=== PATIENT | female | born 1955 | race Caucasian/White ===

== ENCOUNTER 2017-03-13 19:22 | Inpatient (IN) | payer BC ==
[~2017-03-13] VITALS: Ht 162.6 cm; Wt 75.5 kg
--- NOTE | 2017-03-13 20:15 | NUR ---
PT IN ED FOR CP X1.5 WEEKS INTERMITTENLY, REPORTS TODAY HAS BECOME WORSE. PT STS ONSET AT 1700 TODAY, WHILE SHE WAS SITTING "DOING NOTHING." PAIN ORIGINATED IN UPPER L OF CHEST, RADIATED TO THROAT AND HEAD. STS TINGLING TO L ARM AT THE TIME. PT'S DAUGHTER STS PT HAS HX OF STROKE IN JUL 2016. PT'S DAUGHTER ALSO REPORTS PT FELT HER JAW "LOCK UP" AT TIME ON ONSET. HAND [employer] STRON BILAT, PT ABLE TO FOLLWO COMMANDS. PT ALSO HAS HX OF AFIB PER DAUGHTER. PT AT THIS TIME STS CP IS MUCH DECREASED, NO TINGLING OF L ARM, OR NAUSEA AT THIS TIME. PT AAO4, RESP E/U, NO COMPLAINTS. DAUGHTER AT BEDSIDE. PT CONNECTED TO FULL
--- NOTE | 2017-03-13 20:21 | NUR ---
MSE BY DR QUINTANILLA
--- NOTE | 2017-03-13 21:00 | NUR ---
PT AMBULATED TO RESTROOM WITH STEADY GAIT
[2017-03-13 21:01] LABS: CALCIUM 8.9 mg/dL (8.5-10.1); CARBON DIOXIDE 28.7 mmol/L (21-32); CHLORIDE SERUM 105 mmol/L (98-107); CREATININE SERUM 0.7 mg/dL (0.6-1.0); GFR1 > 60 mL/min; GLUCOSE SERUM 97 mg/dL (74-106); POTASSIUM SERUM 3.7 mmol/L (3.5-5.1); SODIUM SERUM 143 mmol/L (136-145)
[2017-03-13 21:06] LABS: ALBUMIN 3.7 g/dL (3.4-5.0); ALKALINE PHOSPHATASE 98 U/L (46-116); ALT/SGPT 32 U/L (14-59); AST/SGOT 20 U/L (15-37); BILIRUBIN TOTAL 0.35 mg/dL (0.20-1.00); LIPASE 149 IU/L (73-393); TOTAL PROTEIN, SERUM 7.3 g/dL (6.4-8.2)
[2017-03-13 21:08] LABS: BASOPHIL % 0.7 % (0-2); PLATELET COUNT 216 x10^3mcL (130-400); RED CELL DISTRIBUTION WIDTH 13.4 % (11.5-14.5)
[2017-03-13] MEDS ORDERED: AMLODIPINE BESYL5 M2 PO (21:18)
[2017-03-13] MEDS ORDERED: XARELTO10 M1 PO (21:18)
[2017-03-13] MEDS ORDERED: RANEXA500 M2 PO (21:18)
[2017-03-13] MEDS ORDERED: SOTALOL HCL80 MG PO (21:18)
[2017-03-13] MEDS ORDERED: PANTOPRAZOLE SO40 M1 PO (21:19)
[2017-03-13] MEDS ORDERED: KLOR-CON M2020 MEQ PO (21:19)
[2017-03-13] MEDS ORDERED: SIMVASTATIN20 M1 PO (21:19)
--- NOTE | 2017-03-13 22:02 | NUR ---
PT DENIES CP AT THIS TIME, BUT STS HER HEAD HURTS. MED ADAMS PER MD ORDER. PT AAO4, RESP E/U, NAD NOTED AT THIS TIME
--- NOTE | 2017-03-13 22:15 | NUR ---
PT CO TROUBLE BREATHING, SON STS "SHE SAID SHE CAN'T TAKE A DEEP BREATH." PT PLACED ON 2L O2 NC. AFTER APPROX 3 MINS PT STATED SHE FEELS BETTER. DENIES CP AT THIS TIME. PT AAO4, NAD NOTED AT THIS TIME
[2017-03-13 22:16] LABS: MAGNESIUM 2.1 mg/dL (1.8-2.4)
--- NOTE | 2017-03-13 22:16 | NUR ---
PT PLACED IN HIGH FOWLERS POSITION
[2017-03-13 22:23] LABS: FREE T4 1.34 ng/dL (0.76-1.46); T4(THYROXINE) 11.8 ug/dL (4.7-13.3)
--- NOTE | 2017-03-13 22:32 | NUR ---
PT IN BED IN POSITION OF COMFORT, AAO4. PT STS SHE FEELS HER BREATHING IS BETTER WITH NC BUT FEELS THE NEED TO TAKE DEEP BREATHS. 02 SAT 100 ON MONITOR, FAMILY CONTINUES TO STAY AT BEDSIDE
[2017-03-13 23:13] LABS: T3 TOTAL 0.95 ng/mL
--- NOTE | 2017-03-13 23:37 | NUR ---
REPORT GIVEN TO BHAVNA TO ASSUME CARE OF PT
--- NOTE | 2017-03-13 23:40 | NUR ---
PT AAO4; RESP E/U; NAD AT THIS TIME. PT HAS NO COMPLAINTS.
[2017-03-13 23:52] VITALS: BP 138/71
[2017-03-13 23:54] VITALS: Ht 162.6 cm; Wt 75.5 kg
--- NOTE | 2017-03-14 00:01 | NUR ---
RECEIVED PT FROM ED VIA [facility]. ORIENTED PT TO ROOM AND SURROUNDINGS. IV NOTED TO LAC PATENT AND INTACT. TELE 46 PLACED ON PT READING NSR. INSTRUCTED PT ON THE USE OF CALL LIGHT FOR ASSISTANCE. ENDORSED PT TO PRIMARY NURSE YOGESH
--- NOTE | 2017-03-14 01:45 | NUR ---
PT REQUESTS SLEEPING PILL, AMBIEN ADMINISTERED PRESCRIBED, WILL CONT TO MONITOR.
--- NOTE | 2017-03-14 05:05 | NUR ---
SLEPT PERIODICALLY THROUGHOUT SHIFT. NO SIGNIFICANT CHANGES. ALL NEEDS MET AND ATTENDED TO. DENIES ANY PAIN OR DISCOMFORT IN CHEST AT THIS TIME. WILL CONT TO MONITOR.
[2017-03-14 05:57] VITALS: BP 96/58
--- NOTE | 2017-03-14 07:05 | NUR ---
PT IN BED. EFFORTLESS BREATHING. CANE AT BEDSIDE. IV INFUSING WELL TO LAC 41 ML/HR #20. BED IN LOWEST POSITION, CALL LIGHT WITHIN REACH. NON-SLIP SOCKS APPLIED. WILL CONTINUE TO MONITOR.
--- NOTE | 2017-03-14 12:45 | NUR ---
PT STATES HEADACHE HAS DECREASED TO 0/10. TOLERATING DIET WELL. CALL LIGHT WITHIN REACH.
[2017-03-14 13:48] VITALS: BP 108/68
--- NOTE | 2017-03-14 14:45 | NUR ---
COLLECTED URINE. TAKEN TO LAB.
[2017-03-14 15:19] LABS: microscopic required? NO
[2017-03-14 15:45] LABS: urine erythrocyte NEGATIVE (NEGATIVE)
[2017-03-14 15:47] VITALS: BP 108/68
[2017-03-14 16:00] LABS: AMPHETAMINE QUAL UR NONE DETECTED (NEG <=1000)
--- NOTE | 2017-03-14 17:25 | NUR ---
PT TAKEN TO CT SCAN FOR HEAD CT. TRANSPORTED VIA WHEELCHAIR. NO DISTRESS REPORTED.
[2017-03-14 17:46] VITALS: BP 103/69
--- NOTE | 2017-03-14 17:49 | NUR ---
PT BACK FROM CT SCAN. PT TOLERATED WELL. TRANSFERRED FROM WHEELCHAIR TO BED. NO DISTRESS. PT STATES HEADACHE HAS SUBSIDED. RESUMED IV FLUIDS. CALL LIGHT WITHIN REACH.
--- NOTE | 2017-03-14 19:30 | NUR ---
PT IS ALERT AND ORIENTED. PLEASANT AND COOPERATIVE. YAKUT SPEAKING AND ABLE TO SPEAK LITTLE TURKISH. LUNGS CLEAR ON AUSCULTATIONS BILATERALLY UPPER AND LOWER BASES. WITH RT PRN. CXR NEGATIVE. PT STATED SHE HAS NO BM YET AND SHE WANTED TO HAVE ONE TONIGHT. PT HAS HX OF A-FIB AND IS TAKING XARELTO. TELE IS NSR. PT NOTED SOME ANXIETY. MADE COMFORTABLE IN BED. CALL LIGHT WITHIN EASY REACH. WILL MONITOR.
[2017-03-14 21:49] VITALS: BP 100/67
--- NOTE | 2017-03-15 03:18 | NUR ---
PT STATED SHE WANTED HER PRILOSEC PO MEDICATION EARLY BECAUSE OF UPSET STOMACH. WILL MONITOR. MEDICATED.
--- NOTE | 2017-03-15 05:13 | NUR ---
PT IS RESTING. PT FEELING COMFORTABLE AFTER TAKING THE PRILOSEC EARLY BECAUSE OF THE GERD. NO C/O PAIN. STILLNO BM NOTED. WITH IV NS AT 75 ML PER HOUR INFUSING WELL IN THE LEFT AC. WILL MONITOR.
[2017-03-15 06:53] VITALS: BP 115/62
[2017-03-15 09:31] VITALS: BP 116/73
[2017-03-15 10:57] LABS: BASOPHIL % 0.6 % (0-2); PLATELET COUNT 208 x10^3mcL (130-400); RED CELL DISTRIBUTION WIDTH 13.5 % (11.5-14.5)
[2017-03-15 11:04] LABS: CALCIUM 8.7 mg/dL (8.5-10.1); CARBON DIOXIDE 28.8 mmol/L (21-32); CHLORIDE SERUM 106 mmol/L (98-107); CREATININE SERUM 0.7 mg/dL (0.6-1.0); GFR1 > 60 mL/min; GLUCOSE SERUM 104 mg/dL (74-106); MAGNESIUM 1.8 mg/dL (1.8-2.4); POTASSIUM SERUM 3.6 mmol/L (3.5-5.1); SODIUM SERUM 141 mmol/L (136-145)
--- NOTE | 2017-03-15 12:01 | NUR ---
PT IN BED. DENIES PAIN AT MOMENT. EFFORTLESS BREATHING ON ROOM AIR. CALL LIGHT WITHIN REACH.
[2017-03-15 12:55] VITALS: BP 108/67
[2017-03-15 14:06] VITALS: BP 108/67
[2017-03-15] MEDS ORDERED: FIORICET1 CAP PO (14:21)
--- NOTE | 2017-03-15 14:25 | NUR ---
PT C/O HEADCHE 03/15 MEDICATED PER EMAR.
--- NOTE | 2017-03-15 14:38 | NUR ---
DISCHARGE INSTRUCTIONS GIVEN TO PATIENT AND . PT VERBALIZED UNDERSTANDING FOR FOLLOW UP APPOINTMENT WITH PCP, AND PRESCRIPTION ORDERS. DC'D IV CATHETER INTACT, PT TOLERATED WELL. PT TRANSPORTED OUT OF UNIT VIA WHEELCHAIR.
== END 2017-03-15 14:37 | disposition home or self-care (01) | DRG 392 ==
LOC: ED 19:22 → DU 22:09 → MU 03-15 11:19
PROVIDERS: Emergency Medicine; ADMIT Family Medicine
DX: K21.9 Gastro-esophageal reflux disease without esophagitis (principal); I48.91 Unspecified atrial fibrillation; E78.5 Hyperlipidemia, unspecified; I10 Essential (primary) hypertension; G90.8 Other disorders of autonomic nervous system; Z68.28 Body mass index [BMI] 28.0-28.9, adult; Z79.01 Long term (current) use of anticoagulants; Z86.73 Personal history of transient ischemic attack (TIA), and cerebral infarction without residual deficits; Z90.49 Acquired absence of other specified parts of digestive tract; Z90.710 Acquired absence of both cervix and uterus
CPT/HCPCS: 83880; 84439; J1940; J2270; J2405; J7030; J7613; Q0092